=== PATIENT | male | born 1935 | race Caucasian/White ===

== ENCOUNTER 2018-08-20 17:32 | Inpatient (IN) | payer MEDICARE, OTHER ==
[~2018-08-20] VITALS: Ht 177.8 cm; Wt 111.1 kg
--- NOTE | 2018-08-20 18:00 | NUR ---
[facility] CONTACTED FOR SUCICIDE RISK SCREENINIG.
[2018-08-20 18:08] LABS: BASOPHILS 0.3 % (0-2); EOSINOPHILS 1.6 % (0-7); HEMOGLOBIN 14.4 g/dL (13.5-17.5); IMMATURE GRANULOCYTES 1.8 % (0-5); LYMPHOCYTES 24.9 % (15-50); MCH 32.1 pg (26.0-34.0); MCHC 35.1 g/dL (31.0-37.0); MCV 91.3 fL (80.0-100.0); MEAN PLATELET VOLUME 10.7 fL (7.4-10.4); MONOCYTES 8.9 % (2-11); NEUTROPHILS 62.5 % (40-80); PLATELET COUNT 166 10x3/uL (130-400); RBC 4.49 10x6/uL (4.20-6.10); RDW 14.4 % (11.5-14.5); WBC 9.2 10x3/uL (4.8-10.8)
--- NOTE | 2018-08-20 18:16 | NUR ---
WARM BLANKETS PROVIDED TO PT FOR COMFORT. PT REFUSED SIDE RAILS X2, BED LOW, CALL LIGHT IN REACH.
[2018-08-20 18:23] LABS: ALBUMIN 4.2 g/dL (3.4-5.0); BILIRUBIN - TOTAL 0.81 mg/dL (0.2-1.3); CALCIUM 9.6 mg/dL (8.5-10.1); CARBON DIOXIDE 22.7 mmol/L (21.0-32.0); CREATININE - SERUM 6.5 mg/dL (0.6-1.3); POTASSIUM - SERUM 4.7 mmol/L (3.5-5.1); PROTEIN - SERUM 8.3 g/dL (6.4-8.2)
--- NOTE | 2018-08-20 18:48 | NUR ---
PT DENIES SI AND DOES NOT REQUIRE A SUICIDE ASSESSMENT. NO SIGN OR SYMPTOMS OF SUICIDE. DR MALDONADO NOTIFIED OF SCREEN AND RESOURCES GIVEN TO PT AT DISCHARGE. NO FURTHER ORDERS PER DR. MALDONADO.
--- NOTE | 2018-08-20 20:30 | NUR ---
PT ARRIVED TO FLOOR VIA WHEEL CHAIR. AT BEDSIDE. PT DENIES NEEDS AT THIS TIME.
[2018-08-20 20:50] LABS: APPEARANCE CLEAR (CLEAR); BILIRUBIN NEGATIVE (NEGATIVE); COLOR YELLOW (YELLOW); GLUCOSE NEGATIVE (NEGATIVE); KETONE NEGATIVE (NEGATIVE); NITRITE NEGATIVE (NEGATIVE); PROTEIN NEGATIVE (NEGATIVE); SPECIFIC GRAVITY 1.015 (1.005-1.020); UROBILINOGEN NORMAL (NORMAL)
[2018-08-20 20:55] LABS: BACTERIA FEW /hpf (NONE SEEN); EPITHELIAL CELLS NSEEN /hpf (0-5); RED CELLS - URINE 0-5 /hpf (0-5); WHITE CELLS - URINE 0-5 /hpf (0-5)
[2018-08-20] MEDS ORDERED: BAYER CHEWABLE81 MG PO (21:44)
[2018-08-20] MEDS ORDERED: AMIODARONE HCL200 MG PO (21:45)
[2018-08-20] MEDS ORDERED: ZYLOPRIM300 MG PO (21:45)
[2018-08-20] MEDS ORDERED: LOPRESSOR25 MG PO (21:46)
[2018-08-20] MEDS ORDERED: OMEGA-3100 MG PO (21:46)
[2018-08-20] MEDS ORDERED: RESTORIL15 MG PO (21:47)
[2018-08-20] MEDS ORDERED: HYDROCHLOROTHIA25 MG PO (21:48)
[2018-08-20] MEDS ORDERED: PRAVACHOL40 MG PO (21:49)
[2018-08-20] MEDS ORDERED: SYNTHROID75 MCG PO (21:50)
[2018-08-20] MEDS ORDERED: BENADRYL50 MG PO (21:50)
[2018-08-20] MEDS ORDERED: TEGRETOL200 MG PO (21:51)
[2018-08-20] MEDS ORDERED: FUROSEMIDE40 MG PO (21:52)
[2018-08-20] MEDS ORDERED: LISINOPRIL5 MG PO (21:53)
[2018-08-20] MEDS ORDERED: HYDROCODON-ACE1 EAC7 PO (21:54)
[2018-08-20 21:55] VITALS: BP 118/53; BMI 35.2
[2018-08-21 01:13] VITALS: BP 116/55
[2018-08-21 06:21] VITALS: BP 102/45
[2018-08-21 06:58] LABS: BASOPHILS 0.4 % (0-2); EOSINOPHILS 5.6 % (0-7); HEMATOCRIT 36.4 % (42.0-54.0); HEMOGLOBIN 12.5 g/dL (13.5-17.5); IMMATURE GRANULOCYTES 2.1 % (0-5); LYMPHOCYTES 26.2 % (15-50); MCH 31.4 pg (26.0-34.0); MCHC 34.3 g/dL (31.0-37.0); MCV 91.5 fL (80.0-100.0); MEAN PLATELET VOLUME 10.9 fL (7.4-10.4); MONOCYTES 13.1 % (2-11); NEUTROPHILS 52.6 % (40-80); PLATELET COUNT 144 10x3/uL (130-400); RBC 3.98 10x6/uL (4.20-6.10); RDW 14.4 % (11.5-14.5); WBC 7.6 10x3/uL (4.8-10.8)
[2018-08-21 07:09] LABS: ANION GAP 17.9 mmol/L (8-16); CALCIUM 8.9 mg/dL (8.5-10.1); CARBON DIOXIDE 21.5 mmol/L (21.0-32.0); CREATININE - SERUM 6.7 mg/dL (0.6-1.3); MAGNESIUM - SERUM 2.8 mg/dL (1.8-2.4); PHOSPHOROUS 6.7 mg/dL (2.5-4.9); POTASSIUM - SERUM 4.4 mmol/L (3.5-5.1)
[2018-08-21 08:27] VITALS: BP 100/48
[2018-08-21 09:50] VITALS: BMI 35.1
--- NOTE | 2018-08-21 09:59 | NUR ---
HERBIE SANDS WAS LYING IN BED WHEN STAFF ENTERED HIS ROOM. BED IS IN THE LOW POSITION WITH SIDERAILS X2 AND CALL LIGHT WITHIN REACH. THE PATIENT WAS EDUCATED ON AND DEMONSTRATED USE OF A CALL LIGHT. THE PATIENT APPEARS COMFORTABLE WITH NO QUESTIONS OR CONCERNS AT THIS TIME.
[2018-08-21 11:18] VITALS: BP 143/60
[2018-08-21 13:47] VITALS: Ht 177.8 cm; Wt 111.1 kg
--- NOTE | 2018-08-21 18:17 | NUR ---
HARDY CATHETER INSERTION ATTEMPTED AND WAS UNSUCCESSFUL.
[2018-08-21 20:10] VITALS: BP 107/40
--- NOTE | 2018-08-21 20:31 | NUR ---
EVENING ROUNDS COMPLETED. VSS, AAOX3, NO S/S RR RR DISTRESS. SPOUSE @ BEDSIDE. PT STATES HE IS CONCERNED WHY HE COULD NOT GET A CATHETER PLACEMENT AND WORRIED HE HAS AN OBSTRUCTION." PT ALSO CONCERENED ABOUT HIS PROCEDURE TOMORROW. EDUCATE PT ABOUT PROCEDURE. PT VOICED THANKS. PT DENIES ANY FURHTER NEEDS AT THIS TIME. WILL CPOC. CL WITHIN REACH, BED IN LOW, SR UP X2.
--- NOTE | 2018-08-21 21:28 | MORECARE ---
CASE MANAGEMENT DISCHARGE SUMMARY PATIENT: LADI GARCIA UNIT: [id number] ADM DATE: 08/20/18 AGE: 82 : 37 SEX: M ROOM/BED: D.1210 AUTHOR: CHANDAN MILLER PHYSICIAN: REFERRING PHYSICIAN: PORFIRIO VAZ MD DATE OF SERVICE: 08/21/18 Discharge Plan Patient Name: LADI GARCIA [facility] [facility] 1935 Planned Disposition: Home Anticipated Discharge Date: Discharge Date: Expected LOS: Initial Reviewer: [email or web address] Initial Review Date: 08/20/2018 Generated: 08/21/18 10:28 pm DCPIA - Discharge Planning Initial Assessment Updated by [email or web address]: Elizabeth Saeed on 08/21/18 9:26 pm * Is the patient Alert and Oriented? Yes * How many steps to enter\exit or inside your home? * [facility]CP [facility]? - [facility] * [facility] * Preadmission Environment Home with Family * ADLs Independent * Other Equipment cane, walker * List name and contact numbers for known caregivers / representatives who currently or will assist patient after discharge: Radha Garcia - - [phone] * Verbal permission to speak to the caregivers and representatives has been obtained from the patient. Yes * Community resources currently utilized None * Additional services required to return to the preadmission environment? No * Can the patient safely return to the preadmission environment? Yes * Has this patient been hospitalized within the prior 30 days at any hospital? Yes Patient Name: LADI GARCIA Page 86801 at 2128 All edits/amendments must be made on the electronic document DICTATION DATE: 08/21/182126 TAX ECONOMIST: NOREEN 08/21/182126 RPT#: [id number] DC DATE: STATUS: ADM IN [facility] [address] [place] [address] END OF REPORT
--- NOTE | 2018-08-21 21:35 | MORECARE ---
CASE MANAGEMENT DISCHARGE SUMMARY PATIENT: LADI GARCIA UNIT: [id number] ADM DATE: 08/20/18 AGE: 82 : 37 SEX: M ROOM/BED: D.1210 AUTHOR: PAUL,DOC PHYSICIAN: REFERRING PHYSICIAN: PORFIRIO VAZ MD DATE OF SERVICE: 08/21/18 Discharge Plan Patient Name: LADI GARCIA Facility: [facility]:[place] : 1935 Planned Disposition: Home Anticipated Discharge Date: Discharge Date: Expected LOS: Initial Reviewer: [email or web address] Initial Review Date: 08/20/2018 Generated: 08/21/18 10:34 pm Comments DCP- Discharge Planning Updated by [email or web address]: Elizabeth Saeed on 08/21/18 8:[address] Patient Name: LADI GARCIA Admission Status: ER Accout number: [id number] Admission Date: 08-20-2018 : 1935 Admission Diagnosis:DEHYDRATION Attending: ТАТЬЯНА, Current LOS: 1 Anticipated DC Date: Planned Disposition: Home Primary Insurance: MEDICARE A & B Discharge Planning Comments: CM met with patient and spouse (Radha) at bedside after explaining CM role and obtaining verbal consent. Patient lives at home with his Radha and plans to return there upon discharge. Patient feels this would be a safe discharge. CM discussed availability / needs of home health and medical equipment. Patient denies any discharge needs at this time. Patient states he will have his drive him home upon discharge. Patient states he was in hospital about 3 weeks ago for removal of Melanoma and lymph nodes. CM will continue to follow and assist as needed with discharge planning / needs. Deaf Interpreter: Elizabeth Saeed DCPIA - Discharge Planning Initial Assessment Updated by [email or web address]: Elizabeth Saeed on 08/21/18 9:26 pm * Is the patient Alert and Oriented? Yes * How many steps to enter\exit or inside your home? * [facility]CP [facility]? - [facility] * [facility] * Preadmission Environment Home with Family * ADLs Independent * Other Equipment cane, walker * List name and contact numbers for known caregivers / representatives who currently or will assist patient after discharge: Radha Garcia - - [phone] * Verbal permission to speak to the caregivers and representatives has been obtained from the patient. Yes * Community resources currently utilized None * Additional services required to return to the preadmission environment? No * Can the patient safely return to the preadmission environment? Yes * Has this patient been hospitalized within the prior 30 days at any hospital? Yes Last DP export: 08/21/18 8:28 p Patient Name: LADI GARCIA Page [id number] at 2135 All edits/amendments must be made on the electronic document DICTATION DATE: 08/21/182133 LIFT TRUCK OPERATOR: NOREEN 08/21/182133 RPT#: [id number] DC DATE: STATUS: ADM IN [facility] [address] [place] [address] END OF REPORT
[2018-08-22 00:38] VITALS: BP 108/44
--- NOTE | 2018-08-22 02:33 | NUR ---
EKG COMPLETED, COPY IN CHART. VSS, NO S/S OF DISTRESS. WILL CTM.
[2018-08-22 04:00] VITALS: BP 105/43
[2018-08-22 06:57] LABS: BASOPHILS 0.5 % (0-2); EOSINOPHILS 9.9 % (0-7); HEMATOCRIT 35.3 % (42.0-54.0); HEMOGLOBIN 12.2 g/dL (13.5-17.5); LYMPHOCYTES 24.9 % (15-50); MCH 31.6 pg (26.0-34.0); MCHC 34.6 g/dL (31.0-37.0); MCV 91.5 fL (80.0-100.0); MEAN PLATELET VOLUME 10.8 fL (7.4-10.4); MONOCYTES 11.3 % (2-11); NEUTROPHILS 51.4 % (40-80); PLATELET COUNT 126 10x3/uL (130-400); RBC 3.86 10x6/uL (4.20-6.10); RDW 14.7 % (11.5-14.5)
[2018-08-22 07:04] LABS: WBC 5.5 10x3/uL (4.8-10.8)
[2018-08-22 07:16] LABS: ANION GAP 17.8 mmol/L (8-16); CALCIUM 8.9 mg/dL (8.5-10.1); CARBON DIOXIDE 20.3 mmol/L (21.0-32.0); MAGNESIUM - SERUM 2.5 mg/dL (1.8-2.4); POTASSIUM - SERUM 4.1 mmol/L (3.5-5.1)
[2018-08-22 07:17] LABS: CREATININE - SERUM 4.4 mg/dL (0.6-1.3); PHOSPHOROUS 4.7 mg/dL (2.5-4.9)
[2018-08-22 07:45] VITALS: BP 117/53
--- NOTE | 2018-08-22 07:50 | NUR ---
OFF FLOOR TO OR VIA BED. WAITING IN ROOM.
--- NOTE | 2018-08-22 09:35 | NUR ---
RETURNED TO ROOM FROM RECOVERY ROOM. VSS. HARDY PATENT DRAINING YELLOW URINE. AT BEDSIDE.
[2018-08-22 11:00] VITALS: BP 120/57
[2018-08-22 16:00] VITALS: BP 117/61
--- NOTE | 2018-08-22 17:30 | NUR ---
EATING DINNER. DENIES ANY NEEDS AT THIS TIME. AT BEDSIDE.
[2018-08-22 19:42] VITALS: BP 107/53
--- NOTE | 2018-08-22 19:45 | NUR ---
PT SITTING UP IN BED. CALL LIGHT IN REACH. RESP EVEN AND UNLABORED. BED IN LOW. PT DENIES NEEDS OR PAIN AT THIS TIME. IN ROOM. ASSESSMENT COMPLETED AT THIS TIME. HARDY INTACT. URINE WNL. LEFT HAND IV INTACT AT THIS TIME. WILL CONTINUE TO MONITOR.
--- NOTE | 2018-08-22 23:54 | NUR ---
PT RESTING QUIETLY. CALL LIGHT IN REACH. NO DISTRESS NOTED. WCTM
[2018-08-23] VITALS: BP 111/55
--- NOTE | 2018-08-23 01:40 | NUR ---
I have reviewed this patient and I concur with the Shift Assessment completed by the Licensed Practical Nurse today this shift.
[2018-08-23 04:35] VITALS: BP 144/66
[2018-08-23 07:00] VITALS: BP 142/63
[2018-08-23 07:11] LABS: ANION GAP 18.1 mmol/L (8-16); CALCIUM 9.5 mg/dL (8.5-10.1); CARBON DIOXIDE 21.4 mmol/L (21.0-32.0); CREATININE - SERUM 2.9 mg/dL (0.6-1.3); PHOSPHOROUS 3.5 mg/dL (2.5-4.9); POTASSIUM - SERUM 4.5 mmol/L (3.5-5.1)
[2018-08-23 07:45] LABS: BASOPHILS 0.5 % (0-2); EOSINOPHILS 10.3 % (0-7); HEMATOCRIT 38.2 % (42.0-54.0); HEMOGLOBIN 13.2 g/dL (13.5-17.5); IMMATURE GRANULOCYTES 2.3 % (0-5); LYMPHOCYTES 28.4 % (15-50); MCHC 34.6 g/dL (31.0-37.0); MCV 92.7 fL (80.0-100.0); MEAN PLATELET VOLUME 11.3 fL (7.4-10.4); MONOCYTES 12.1 % (2-11); NEUTROPHILS 46.4 % (40-80); PLATELET COUNT 147 10x3/uL (130-400); RBC 4.12 10x6/uL (4.20-6.10); WBC 6.2 10x3/uL (4.8-10.8)
--- NOTE | 2018-08-23 08:52 | NUR ---
UP IN BED AWAKE AT THIS TIME. NO ACUTE DISTRESS NOTED. AT BEDSIDE. WILL CONTINUE PLAN OF CARE.
--- NOTE | 2018-08-23 10:28 | NUR ---
DR VAZ NOTIFIED OF PTS CONCERN OF AMBULATION SINCE HARDY WAS PLACED. ORDER RECIEVED FOR PHYSICAL THERAPY CONSULT. NO ACUTE DISTRESS NOTED. VSS. WILL CONTINUE PLAN OF CARE.
--- NOTE | 2018-08-23 12:35 | NUR ---
PER RENAL WHEN PT DISCHARGES HE NEEDS TO HAVE FOLLOW UP APPT IN 1-2 WEEKS.
--- NOTE | 2018-08-23 14:19 | OP ---
PATIENT NAME: NAEEM MANUEL MEDICAL RECORD: [id number] :[birth year] LOCATION:D.M3 D.1210 ADMISSION DATE:08/20/18 SURGEON: NAEEM MCDONALD MD DATE OF OPERATION: 08/22/2018 SURGEON: Naeem Mcdonald MD ANESTHESIA: General anesthetic by Casimiro Monahan CRNA DIAGNOSES: Urinary retention, acute renal failure, bladder neck contracture. PROCEDURES: Cystoscopy, insertion of a Maddox catheter over a guidewire. FINDINGS: Bladder neck contracture. No penile urethral strictures. No bladder tumors. BLOOD LOSS: None. CLINICAL HISTORY: This is an 82-year-old male transferred from [facility] with nausea and vomiting and acute renal failure. He was found to have a distended bladder. He has previously had a radical prostatectomy for prostate cancer. There has been no radiation. He cannot be catheterized by the nursing staff. He comes now to have the catheter put in cystoscopically. Due to his renal failure, we gave him 1 gram of Ancef convertible sofa bedspring tester to the OR. HE IS ALLERGIC TO CODEINE AND SHELLFISH. DESCRIPTION OF PROCEDURE: The patient was given induction of general anesthesia. He was then placed into the lithotomy position and prepped and draped. A 21-Guinean cystoscope with 30-degree lens was used for visualization. There are no urethral strictures in the penis. The bladder neck contracture was evident. However, I was able to negotiate through the contracted bladder neck with the scope. A Sensor wire was then placed into the bladder under direct vision. Looking in the bladder, there were no signs of bladder tumors. The scope was then removed, leaving the wire in place. Over the wire, a 16-Guinean tetlin tip Maddox catheter was placed into the bladder. Once the catheter was fully in the bladder, then the balloon was inflated and the wire was removed entirely. The patient was awakened and brought back to the recovery room. TRANSINT:[id number] Voice Confirmation ID: [id number] DOCUMENT ID: [id number] NAEEM MCDONALD MD at 1419 CC: [id number] DICTATION DATE: 08/22/18 0846 RN OBSERVATION: 08/22/18 1218 [facility] [place] [id number] [place] [address]
[2018-08-23 20:00] VITALS: BP 154/74
--- NOTE | 2018-08-23 20:48 | NUR ---
PT IN BED. DENIES NEEDS AT THIS TIME.
[2018-08-24 00:47] VITALS: BP 148/67
--- NOTE | 2018-08-24 00:52 | NUR ---
REST QUIETLY IN BED. AT BEDSIDE. CALL LIGHT IN REACH.
--- NOTE | 2018-08-24 04:07 | NUR ---
REST QUIELTY IN BED. CALL LIGHT IN REACH.
[2018-08-24 07:36] LABS: BASOPHILS 0.4 % (0-2); EOSINOPHILS 12.4 % (0-7); HEMATOCRIT 34.7 % (42.0-54.0); HEMOGLOBIN 11.6 g/dL (13.5-17.5); IMMATURE GRANULOCYTES 1.7 % (0-5); LYMPHOCYTES 23.9 % (15-50); MCH 31.3 pg (26.0-34.0); MCHC 33.4 g/dL (31.0-37.0); MCV 93.5 fL (80.0-100.0); MEAN PLATELET VOLUME 10.8 fL (7.4-10.4); NEUTROPHILS 48.6 % (40-80); PLATELET COUNT 120 10x3/uL (130-400); RBC 3.71 10x6/uL (4.20-6.10); RDW 15.1 % (11.5-14.5)
[2018-08-24 07:40] LABS: CREATININE - URINE 71.3 mg/dL (30-125); PRO/CRE RATIO URINE 0.5 mg/g; PROTEIN - URINE 35.5 mg/dL (0.0-11.9)
[2018-08-24 07:44] LABS: WBC 4.6 10x3/uL (4.8-10.8)
[2018-08-24 08:01] LABS: ANION GAP 15.7 mmol/L (8-16); CALCIUM 8.5 mg/dL (8.5-10.1); CARBON DIOXIDE 22.4 mmol/L (21.0-32.0); MAGNESIUM - SERUM 1.6 mg/dL (1.8-2.4); PHOSPHOROUS 2.6 mg/dL (2.5-4.9); POTASSIUM - SERUM 4.1 mmol/L (3.5-5.1)
--- NOTE | 2018-08-24 08:15 | NUR ---
PT RESTING IN BED WITH AT BEDSIDE EATING BREAKFAST TOLERATING WELL CALL LIGHT IN REACH WILL MONITER
--- NOTE | 2018-08-24 11:09 | MORECARE ---
CASE MANAGEMENT DISCHARGE SUMMARY PATIENT: LADI GARCIA UNIT: [id number] ADM DATE: 08/20/18 AGE: 82 : 37 SEX: M ROOM/BED: D.1210 AUTHOR: PAUL,DOC PHYSICIAN: REFERRING PHYSICIAN: PORFIRIO VAZ MD DATE OF SERVICE: 08/24/18 Discharge Plan Patient Name: LADI GARCIA Facility: [facility]:[place] : 1935 Planned Disposition: Home Anticipated Discharge Date: Discharge Date: Expected LOS: Initial Reviewer: [email or web address] Initial Review Date: 08/20/2018 Generated: 08/24/18 12:08 pm Comments DCP- Discharge Planning Updated by [email or web address]: Mahi Kelly on 08/24/18 10:[address] Patient Name: LADI GARCIA Admission Status: ER Accout number: [id number] Admission Date: 08-20-2018 : 1935 Admission Diagnosis:DEHYDRATION Attending: ТАТЬЯНА, Current LOS: 4 Anticipated DC Date: Planned Disposition: Home Primary Insurance: MEDICARE A & B Discharge Planning Comments: BRANDON and IMM signed. BRANDON SIGNED FOR [facility] OUT OF [address]. REFERRAL SENT AND INFORMATION FAXED TO . Electrician Substation Supervisor: Mahi Kelly DCP- Discharge Planning Updated by [email or web address]: Elizabeth Saeed on 08/21/18 8:[address] Patient Name: LADI GARCIA Admission Status: ER Accout number: [id number] Admission Date: 08-20-2018 : 1935 Admission Diagnosis:DEHYDRATION Attending: ТАТЬЯНА, Current LOS: 1 Anticipated DC Date: Planned Disposition: Home Primary Insurance: MEDICARE A & B Discharge Planning Comments: CM met with patient and spouse (Radha) at bedside after explaining CM role and obtaining verbal consent. Patient lives at home with his Radha and plans to return there upon discharge. Patient feels this would be a safe discharge. CM discussed availability / needs of home health and medical equipment. Patient denies any discharge needs at this time. Patient states he will have his drive him home upon discharge. Patient states he was in [facility] about 3 weeks ago for removal of Melanoma and lymph nodes. CM will continue to follow and assist as needed with discharge planning / needs. Electrician Substation Supervisor: Elizabeth Saeed DCPIA - Discharge Planning Initial Assessment Updated by [email or web address]: Elizabeth Saeed on 08/21/18 9:26 pm * Is the patient Alert and Oriented? Yes * How many steps to enter\exit or inside your home? * [facility]CP [facility]adi [facility]? - [facility] * [facility] * Preadmission Environment Home with Family * ADLs Independent * Other Equipment cane, walker * List name and contact numbers for known caregivers / representatives who currently or will assist patient after discharge: Radha Garcia - - [phone] * Verbal permission to speak to the caregivers and representatives has been obtained from the patient. Yes * Community resources currently utilized None * Additional services required to return to the preadmission environment? No * Can the patient safely return to the preadmission environment? Yes * Has this patient been hospitalized within the prior 30 days at any hospital? Yes Coverage Notice Reviewer: [email or web address] Francois Kelly Notice Issued Date-Time: 08/24/2018 10:45 Notice Type: IM Discharge Notice Notice Delivered To: Patient Relationship to Patient: Self Engineering Drawings Checker Name: Delivery Method: HAND - Hand Delivered Veronica Days: Prior Verbal Notification: Recipient Understood Notice: Yes Recipient Signature: Yes Med Rec Note Co-signed by Attending: Coverage Notice Comment: Last DP export: 08/21/18 8:34 p Patient Name: LADI GARCIA Page 83075 at 1109 All edits/amendments must be made on the electronic document DICTATION DATE: 08/24/181107 PROFILE MILL OPERATOR TAPE CONTROL: NOREEN 08/24/181107 RPT#: [id number] DC DATE: STATUS: ADM IN [facility] [address] [place] [address] END OF REPORT
[2018-08-24 12:58] VITALS: BP 138/60
--- NOTE | 2018-08-24 14:03 | NUR ---
PT DISCHARGED TO HOME VIA WHEELCHAIR WITH DISCHARGE SUMMARY AND MEDS REVIEWED WITH PT NO QUESTIONS OR CONCERNS TOLERATED WELL
--- NOTE | 2018-08-24 14:33 | MORECARE ---
CASE MANAGEMENT DISCHARGE SUMMARY PATIENT: LADI GARCIA UNIT: [id number] ADM DATE: 08/20/18 AGE: 82 : 37 SEX: M ROOM/BED: D.1210 AUTHOR: PAUL,DOC PHYSICIAN: REFERRING PHYSICIAN: PORFIRIO VAZ MD DATE OF SERVICE: 08/24/18 Discharge Plan Patient Name: LADI GARCIA Facility[facility]:[place] : 1935 Planned Disposition: Home Anticipated Discharge Date: Discharge Date: 08/24/2018 Expected LOS: 0 Initial Reviewer: [email or web address] Initial Review Date: 08/20/2018 Generated: 08/24/18 3:32 pm Comments DCP- Discharge Planning Updated by [email or web address]: Mahi Kelly on 08/24/18 10:[address] Patient Name: LADI GARCIA Admission Status: ER Accout number: [id number] Admission Date: 08-20-2018 : 1935 Admission Diagnosis:DEHYDRATION Attending: ТАТЬЯНА, Current LOS: 4 Anticipated DC Date: Planned Disposition: Home Primary Insurance: MEDICARE A & B Discharge Planning Comments: BRANDON and IMM signed. BRANDON SIGNED FOR [facility] OUT OF [place]. REFERRAL SENT AND INFORMATION FAXED TO . Aids Nurse: Mahi Kelly DCP- Discharge Planning Updated by [email or web address]: Elizabeth Saeed on 08/21/18 8:[address] Patient Name: LADI GRACIA Admission Status: ER Accout number: [id number] Admission Date: 08-20-2018 : 1935 Admission Diagnosis:DEHYDRATION Attending: ТАТЬЯНА, Current LOS: 1 Anticipated DC Date: Planned Disposition: Home Primary Insurance: MEDICARE A & B Discharge Planning Comments: CM met with patient and spouse (Radha) at bedside after explaining CM role and obtaining verbal consent. Patient lives at home with his Radha and plans to return there upon discharge. Patient feels this would be a safe discharge. CM discussed availability / needs of home health and medical equipment. Patient denies any discharge needs at this time. Patient states he will have his drive him home upon discharge. Patient states he was in [facility] about 3 weeks ago for removal of Melanoma and lymph nodes. CM will continue to follow and assist as needed with discharge planning / needs. Aids Nurse: Elizabeth Christophe DCPIA - Discharge Planning Initial Assessment Updated by [email or web address]: Elizabeth Saeed on 08/21/18 9:26 pm * Is the patient Alert and Oriented? Yes * How many steps to enter\exit or inside your home? * [facility]CP [facility]? - [facility] * [facility] * Preadmission Environment Home with Family * ADLs Independent * Other Equipment cane, walker * List name and contact numbers for known caregivers / representatives who currently or will assist patient after discharge: Radha Garcia - - [phone] * Verbal permission to speak to the caregivers and representatives has been obtained from the patient. Yes * Community resources currently utilized None * Additional services required to return to the preadmission environment? No * Can the patient safely return to the preadmission environment? Yes * Has this patient been hospitalized within the prior 30 days at any hospital? Yes Coverage Notice Reviewer: TRI Kelly Notice Issued Date-Time: 08/24/2018 10:45 Notice Type: IM Discharge Notice Notice Delivered To: Patient Relationship to Patient: Self Nurse Researcher Name: Delivery Method: HAND - Hand Delivered Veronica Days: Prior Verbal Notification: Recipient Understood Notice: Yes Recipient Signature: Yes Med Rec Note Co-signed by Attending: Coverage Notice Comment: Reviewer: TRI Kelly Notice Issued Date-Time: 08/24/2018 10:45 Notice Type: Patient Choice Letter Notice Delivered To: Patient Relationship to Patient: Self Nurse Researcher Name: Delivery Method: HAND - Hand Delivered Veronica Days: Prior Verbal Notification: Recipient Understood Notice: Yes Recipient Signature: Yes Med Rec Note Co-signed by Attending: Coverage Notice Comment: Last DP export: 08/24/18 10:08 a Patient Name: LADI GARCIA Page 27898 at 1433 All edits/amendments must be made on the electronic document DICTATION DATE: 08/24/181431 MINERAL INDUSTRY TEACHER: NOREEN 08/24/18 143 RPT#: [id number] DC DATE:08/24/18 STATUS: DIS IN [facility] [address] [place] [address] END OF REPORT
--- NOTE | 2018-08-26 11:19 | EC ---
PATIENT:LADI MANUEL DATE OF SERVICE: 08/20/18 SEX: M MEDICAL RECORD: [id number] DATE OF : [birth year] LOCATION:D.M3 D.121 AGE OF PATIENT: 82 ADMISSION DATE: 08/20/18 REFERRING PHYSICIAN: INTERPRETING PHYSICIAN: WILBERTO STEVENS MD ECHOCARDIOGRAM REPORT ECHO CHARGES 4 ECHO COMPLETE Date: 08/22/18 CLINICAL DIAGNOSIS: CAD, ASSESS EF ECHOCARDIOGRAPHIC MEASUREMENTS (adult normal given) AC root (d.<3.7cm) 2.6 cm LV Septum d (<1.2 cm> 1.4 cm Valve Excursion 1.5 cm LV Septum (systole) 1.6 cm Left Atria (s.<4.0cm> 4.6 cm LVPW d(<1.2cm) 1.1 cm RV (d.<2.3cm) 3.2 cm LVPW (sytole) 1.3 cm LV diastole(<5.6CM) 4.3 cm MV E-F(>70mm/sec) cm LV systole 3.5 cm LVOT Diameter 1.5 cm MV exc.(>10mm) cm Est.ejection fraction (50-75%) % DOPPLER: LVIT cm/sec A 90 cm/sec E 101 cm/sec LA cm/sec RVSP 23.4 mmHg LVOT 107 cm/sec AOP1/2T m/s Asc. Ao 234 cm/sec RVOT 75 cm/sec RA cm/sec PA 86 cm/sec AV Gradient Peak 21.8 mmHg AV Mean 10.0 mmHg AV Area 1.2 cm MV Gradient Peak 4.6 mmHg MV Mean 2.6 mmHg MV Area cm COMMENTS: Box Strapper: Reddy MORALES Fiber Heel Piece Shaper: 1 Dr. Stevens TAPE# PACS Pericardial Effusion N DATE OF SERVICE: 08/22/2018 FINDINGS: 1. Left ventricular chamber size is mildly dilated. Left ventricular systolic function is mild to moderately reduced. Overall ejection fraction of 35% to 40%. 2. Left atrium is enlarged at 4.6 cm. Right atrium and right ventricular chamber sizes are as well enlarged. 3. 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 The remaining valvular structures have ECHOCARDIOGRAM REPORT [id number] LADI MANUEL normal structure and motion. 4. Doppler interrogation reveals trace mitral regurgitation, trace tricuspid regurgitation. Pulmonary systolic pressure is normal at 23 mmHg. 5. No evidence of pericardial effusion or left ventricular thrombus. OVERALL IMPRESSION: Mitral valve lesion compatible with endocarditis. TRANSINT:[id number] Voice Confirmation ID: [id number] DOCUMENT ID: [id number] WILBERTO STEVENS MD at 1119 CC: [id number] DICTATION DATE: 08/23/18 1028 GENERAL MAINTENANCE MECHANIC: 08/23/18 1417 DIS IN 08/24/18 [place] [id number] [place] [id number]
== END 2018-08-24 14:06 | disposition home health service (06) | DRG 699 ==
LOC: D.ER 17:32 → D.M2 18:52 → D.M3 18:52
PROVIDERS: Family Medicine; Internal Medicine; Urology; ADMIT Family Medicine; ATTEND Family Medicine
PROC: 0T9B80Z Drainage of Bladder with Drainage Device, Via Natural or Artificial Opening Endoscopic (ICD-10-PCS; principal; 2018-08-22 08:00)
DX: N32.0 Bladder-neck obstruction (principal); N17.9 Acute kidney failure, unspecified; E86.0 Dehydration; I25.10 Atherosclerotic heart disease of native coronary artery without angina pectoris; K59.00 Constipation, unspecified; Z87.891 Personal history of nicotine dependence